=== PATIENT | male | born 1950 | race Caucasian/White ===

== ENCOUNTER 2024-03-16 10:31 | Day surgery (SDC) | payer MEDICARE, OTHER, SELFPAY ==
[2024-03-10 15:37] VITALS: BMI 24.7
[2024-03-16] MEDS: LACTATED RINGERS 1000ML 1,000 ML 25 ML IV (10:55)
[2024-03-16 11:03] VITALS: BP 151/85; PULSE 77; RESP 18; TEMP 36.6; O2SAT 96
--- NOTE | 2024-03-16 11:29 | P.PNANES_ITS ---
[facility] Disclaimer: The information contained in this section may have been updated after the patient was seen, as this information can be updated by other users. Medical History History of kidney stones Diabetes Surgical History Hx of tonsillectomy Hx of vasectomy Family History (Updated 03/16/24 @ 11:03 by Rigo Chaparro RN) Other Family history of cancer Social History Smoking Status: Never smoker alcohol intake: never substance use type: denies use current occupational status: employed Travel in the last 8 weeks: None [facility] Anesthesia Checklist Patient Identification Patient Identification: Arm Band Structural Data Admitted From: Home Planned Operative Procedure/s: Colonoscopy Consent for Planned Operative Procedure(s) Verified: Yes Verified Documents: Surgical Consent and History and Physical NPO Status Verified Time NPO: 00:00 Additional verifications Anesthesia Reactions: No Airway Assessment Mallampati Score:: Class II C-Spine Mobility Assessed: Yes TMJ Mobility Assessed: Yes Dentition: Good Dentition Neurological Assessment Level of Consciousness: Awake, Alert and Appropriate Anesthesia Plan Anesthesia Risk discussed: Yes Anesthesia Plan: Verified ASA Class: II Anesthesia Type: MAC
--- NOTE | 2024-03-16 12:01 | P.HP_ITS ---
History of Present Illness *Admission Date: 03/16/24 *Reason for visit:: Screening *History of present illness: Mr. Subramanian is a 73-year-old gentleman who is here for screening colonoscopy/screening for colon cancer and last colonoscopy was 10 years ago. The examination is deemed medically necessary for screening/surveillance. The patient has been seen, interviewed and examined prior to the procedure by both myself and the anesthesia provider. [facility] Disclaimer: The information contained in this section may have been updated after the patient was seen, as this information can be updated by other users. Medical History (Updated 03/16/24 @ 12:13 by Cristobal Cunha II, MD) History of kidney stones Diabetes Surgical History Hx of tonsillectomy Hx of vasectomy Family History (Updated 03/16/24 @ 11:03 by Rigo Chaparro RN) Other Family history of cancer Social History (Updated 03/16/24 @ 11:[address] CRNA) Smoking Status: Never smoker alcohol intake: never substance use type: denies use current occupational status: employed Travel in the last 8 weeks: None Review of Systems Review of Systems Review of systems (narrative): Negative *Cardiovascular Comments: Negative *Gastrointestinal Comments: Negative *Genitourinary Comments: Negative *Musculoskeletal Comments: Negative *Neurologic Comments: Negative Meds Home Medications and Allergies Home Medications ?Medication ?Instructions ?Recorded ?Confirmed ?Type aspirin 81 mg capsule 81 mg PO DAILY 03/16/24 03/16/24 History atorvastatin 10 mg tablet (Lipitor) 10 mg PO DAILY 03/16/24 03/16/24 History calcium polycarbophil 625 mg tablet 1,250 mg PO DAILY 03/16/24 03/16/24 History fluvoxamine 25 mg tablet 25 mg PO HS 03/16/24 03/16/24 History losartan 100 1 tab PO DAILY 03/16/24 03/16/24 History mg-hydrochlorothiazide 12.5 mg tablet (Hyzaar) metformin 500 mg tablet 500 mg PO BID 03/16/24 03/16/24 History sngwyfthoqql-wsd-jxgdt acid-vit 1 tab PO DAILY 03/16/24 03/16/24 History K-lycop 400 mcg-20 mcg-370 mcg tablet (Men's 50 Plus Multivitamin) omeprazole 20 mg capsule,delayed 20 mg PO DAILY 03/16/24 03/16/24 History release sildenafil 100 mg tablet (Viagra) 100 mg PO DAILY 03/16/24 03/16/24 History triamcinolone acetonide 0.1 See Rx Instructions .Route 03/16/24 03/16/24 History %-emollient comb.no.45 topical .COMPLEX PRN ears/forehead cream New Prescriptions to Start Prescriptions: Allergies Allergy/AdvReac Type Severity Reaction Status Date / Time No Known Allergies Allergy Verified 03/09/24 14:52 Exam Data for Last 24 hours Vital signs and Labs for Last 24 Hours: Temp Pulse Resp BP Pulse Ox O2 Del Method 97.8 F 77 18 151/85 H 96 Room Air 03/16/24 11:03 03/16/24 11:03 03/16/24 11:03 03/16/24 11:03 03/16/24 11:03 03/16/24 11:03 *Routine HEENT Exam Head: Present normocephalic Eye: Present EOMI and PERRL ENT: Present mucous membranes moist *Routine Neck Exam Neck: Present supple *Routine Respiratory Exam Respiratory: Present CTA bilaterally *Routine Cardiovascular Exam Cardiovascular: Present RRR *Routine Abdominal Exam Abdominal: Present soft and normoactive bowel sounds; Absent tenderness *Routine Rectal Exam Rectal:: deferred *Routine Genitalia Exam Genitalia:: deferred *Routine Extremities Exam Extremities: Absent cyanosis, clubbing or edema *Routine Skin Exam Skin: Present warm; Absent rash *Routine Neurological Exam Neurological: Present alert and oriented X3 Assessment and Plan *Assessment and plan (1) Screening for colon cancer: Status: Acute Category: Medical Code(s): Z12.11 - Encounter for screening for malignant neoplasm of colon Plan A/P: 1. Screening for colon cancer is is the preprocedural diagnosis. The patient will be anesthetized/sedated using MAC sedation. The patient has been seen and examined. Cardiac and lung assessment prior to the examination is st able. Proceed with planned colonoscopy
[2024-03-16 12:10] VITALS: O2SAT 99
--- NOTE | 2024-03-16 12:14 | P.PCN_ITS ---
[facility] Procedure Note Date: 03/16/24 Time: 12:31 Procedure Note:: Colonoscopy Procedure Report: Colonoscopy with cold snare polypectomy Endoscopist: Cristobal Cunha II, MD Referring physician: Sudheer Kruger MD Date of Procedure: March 16, 2024 Equipment: Olympus 190 variable stiffness pediatric colonoscope Sedation: MAC sedation Indication: Mr. Subramanian is a 73-year-old gentleman who is here for routine screening colonoscopy. His last colonoscopy was 10 years ago. He has never had colon polyps. He reports no abdominal pain, weight loss, change in his bowel habits or rectal bleeding. He reports no family history of colon cancer. He does have intermittent fecal urgency over the last 2 or 3 years and has had 6 or 8 episodes of fecal incontinence. This is unchanged. He also reports some postprandial coughing and feels this may be related to reflux. Procedure: Prior to the procedure, a history and physical exam was performed, and patient's medications and allergies were reviewed. The risks, benefits and alternatives of the sedation and procedure were discussed with the patient. All questions were answered and informed consent was obtained. The patient was brought to the procedure room. Patient identification and proposed procedure were verified by the physician and the nurse. The patient was placed in a left lateral decubitus position and the scope was passed under direct vision. Throughout the procedure, the patient's blood pressure, pulse, and oxygen saturations were monitored continuously. The colonoscopy was accomplished without difficulty. The patient tolerated the procedure well. Findings: On digital rectal examination there was normal rectal tone. There were no external hemorrhoids. The prostate was 2+, smooth, soft, symmetric without nodules. The colonoscope was introduced through the anal canal to the rectum and advanced to the cecum. The ileocecal valve and appendiceal orifice were identified. The scope was advanced a short distance into the ileum which appeared grossly normal. The scope was then withdrawn into the colon. The cecum, ascending and transverse colon and mucosa were grossly normal. There was a single 4 mm descending sessile polyp that was removed via cold snare polypectomy. There were extensively scattered diverticuli throughout the descending and sigmoid colon (LEFT colon). The rectum itself was normal. Upon retroflexion within the rectum there were grade 2 internal hemorrhoids. The preparation was excellent throughout with [place] Preparation Score of 9. The cecal time was 12 minutes. Impression: 1. Diminutive 4 mm descending colon polyp 2. Extensive left-sided diverticulosis 3. Grade 2 internal hemorrhoids Plan: I will follow-up the polyp histology and determine whether further surveillance is warranted. I would encourage continued psyllium bulking fiber supplementation on a long-t erm daily maintenance basis. We will discuss postprandial cough and whether PPI therapy or endoscopy is warranted.
[2024-03-16 12:33] VITALS: BP 110/62; PULSE 84; RESP 16; O2SAT 96
[2024-03-16 12:43] VITALS: BP 95/63; PULSE 77; RESP 15; O2SAT 95
[2024-03-16 12:53] VITALS: BP 109/86; PULSE 82; RESP 16; O2SAT 97
[2024-03-16 12:58] VITALS: BP 134/74; PULSE 77; RESP 16; O2SAT 96
[2024-03-17 06:20] LABS: POC Glucose,Bedside 108 (70-110)
== END 2024-03-16 13:00 | disposition home or self-care (01) ==
PROVIDERS: PCP Internal Medicine; Visit Provider Internal Medicine Gastroenterology
PROC: 0DJD8ZZ Inspection of Lower Intestinal Tract, Via Natural or Artificial Opening Endoscopic (ICD-10-PCS; CPT 45378; principal; 2024-03-16 12:00)
DX: Z12.11 Encounter for screening for malignant neoplasm of colon (principal); D12.4 Benign neoplasm of descending colon; K64.1 Second degree hemorrhoids; K57.30 Diverticulosis of large intestine without perforation or abscess without bleeding; E11.9 Type 2 diabetes mellitus without complications; Z79.899 Other long term (current) drug therapy; Z79.84 Long term (current) use of oral hypoglycemic drugs
CPT/HCPCS: 45385; 82962; 88305; J7120